=== PATIENT | male | born 1965 | race Caucasian/White ===

== ENCOUNTER 2018-02-17 08:04 | Day surgery (SDC) | payer OTHER ==
[~2018-02-17 08:04] MED LIST: Buffered Lidocaine 0.9% SYRIN* 5 ML/SYR SYRINGE INTRADERM ONE
[2018-02-17] MEDS ORDERED: ceFAZolin 2 GM in NS PREMIX(*) 2 GM/100 ML BAG IVPB ONE (08:29)
[2018-02-17] MEDS ORDERED: Rocuronium* 10 MG/ML VIAL ONE (09:11)
[2018-02-17] MEDS ORDERED: Midazolam* 1 MG/ML 2 ML VIAL (2 MG) ONE (09:11)
[2018-02-17] MEDS ORDERED: fentaNYL* 50 MCG/ML 2 ML VIAL (100 MCG VIAL) ONE ×2 (09:11→11:30)
[2018-02-17] MEDS ORDERED: Lidocaine 1%* 5 ML VIAL ONE (09:55)
[2018-02-17] MEDS ORDERED: ROPIVACAINE 5 MG/ML 30 ML BTL (0.5%) ONE (09:55)
[2018-02-17] MEDS ORDERED: Bupivacaine 0.25% SDV PF* 10 ML VIAL INJ ONE (10:12)
[2018-02-17] MEDS ORDERED: ceFAZolin 1 GM ADVAN(*) 1 GM ADDV.VIAL IVPB ONE (10:29)
[2018-02-17] MEDS ORDERED: HYDROcodone/ACETAMIN 5-325 MG* 1 TAB PO PRN (11:06)
[2018-02-17] MEDS ORDERED: DiMENhydriNATE IV* 50 MG/ML VIAL IV PUSH PRN (11:06)
[2018-02-17] MEDS ORDERED: Acetaminophen TAB* 325 MG PO PRN (11:06)
[2018-02-17] MEDS ORDERED: Ondansetron INJ* 2 MG/ML VIAL IV PRN (11:06)
[2018-02-17] MEDS ORDERED: Morphine INJ* 2 MG/ML 1 ML SYRINGE (TWO MG - NEW SYRINGE VERSION) IV PRN (11:06)
[2018-02-17] MEDS ORDERED: fentaNYL* 50 MCG/ML 2 ML VIAL (100 MCG VIAL) IV PRN (11:06)
[2018-02-17] MEDS ORDERED: Naloxone* 0.4 MG/ML 1 ML VIAL IV PRN (11:06)
[2018-02-17] MEDS ORDERED: Labetalol IV* 5 MG/ML 20 ML VIAL IV PUSH PRN (11:08)
[2018-02-17] MEDS ORDERED: hydrALAZINE IV* 20 MG/ML VIAL IV SLOW PU PRN (11:10)
[2018-02-17] MEDS ORDERED: Propofol* 10 MG/ML 20 ML BTL IV PUSH ONE (13:28)
[2018-02-17] MEDS ORDERED: Ondansetron INJ* 2 MG/ML VIAL ONE (13:28)
[2018-02-17] MEDS ORDERED: Dexamethasone IV* 4 MG/ML 1 ML (4 MG) ONE (13:28)
[2018-02-17] MEDS ORDERED: Metoclopramide IV* 5 MG/ML 2 ML VIAL ONE (13:28)
[2018-02-17 14:25] VITALS: BP 131/86
--- NOTE | 2018-02-22 13:50 | OP ---
CC: PCP, Jace Arcos MD * DATE OF OPERATION: 02/17/18 - [facility] DATE OF : 63 SURGEON: Miguel Angel Cerda MD RESEARCH ADVISOR: ANGELA Beltran. An pharmacy innovation assistant was needed for the entirety of the case to help with positioning, retraction, and was utilized throughout all portions of the case. ANESTHESIOLOGIST: Dr. Koo. ANESTHESIA: General with interscalene nerve block. PRE-OP DIAGNOSES: 1. Right shoulder calcific tendinitis. 2. Partial-thickness tear of the rotator cuff. POST-OP DIAGNOSES: 1. Right shoulder calcific tendinitis. 2. Partial-thickness tear of the rotator cuff. 3. Superior labrum anterior and posterior type 2 tear with biceps instability and synovitis. OPERATIVE PROCEDURE: 1. Right shoulder arthroscopy with extensive glenohumeral debridement including anterior and posterior labral debridement. 2. Subacromial decompression with acromioplasty. 3. Calcific tendon debridement. 4. Rotator cuff repair with Regeneten patch. 5. Subpectoral biceps tenodesis. COMPLICATIONS: None. ESTIMATED BLOOD LOSS: Minimal. IMPLANTS USED: One Q-FIX 2.8 mm and 1 medium-sized patch. INDICATIONS: Lucas Sparks is a 52-year-old male who had a work-related injury that has failed conservative treatment. Risks and benefits of surgery were discussed at length included but not limited to bleeding; infection; damage to nerves, vessels, surrounding structures; wound nonhealing; persistent pain; need for further surgery; scarring; stiffness; incomplete relief of symptoms; and risks of anesthesia. DESCRIPTION OF PROCEDURE: The patient was greeted in the preoperative area by the attending surgeon. Correct extremity was marked and the consent was confirmed. The patient underwent interscalene nerve block in the preoperative area. Then, the patient was brought back to the operating suite where he was placed in supine position on the operating table. He then underwent general anesthesia, after which he was placed in the left lateral decubitus position with all bony prominences padded. He was secured with a peg board. The right shoulder was prepped and draped in usual sterile fashion beginning with chlorhexidine soap, scrub, and alcohol wipe and a final prep with ChloraPrep. After appropriate surgical pause indicating site, side, procedure, and administration of antibiotics, the standard postero-lateral portal was made sharply with an 11-blade. Scope was introduced into the joint. The glenohumeral joint was examined. There were grade 1 and 2 changes to the glenohumeral joint. There was biceps synovitis and inflammation. There was biceps tendinitis as well. The superior labrum had a type 2 SLAP tear. The undersurface of the rotator cuff had partial-thickness tearing. The anterior portal was made in outside fashion. Shaver was used to debride back the anterior, posterior, superior labrum. Biceps was then tenotomized for later tenodesis. Subscap was intact. The under-surface of the rotator cuff supraspinatus had partial-thickness tearing, moderate grade. The inferior recess was intact. Once the intraarticular work was completed, attention was directed to subacromial space. With the scope positioned in subacromial space, the shaver was used to debride back the abundant bursitis that was present. The undersurface of the acromion was skeletonized using electrocautery device. The 4-0 oval bur was then used to remove the undersurface of the acromion. Acromial spur was just debrided back and all the excess debris was removed. Attention was then directed to the rotator cuff. It was gently probed with a blunt tip device. The calcific lesion was identified and then tenotomized with an 18-gauge spinal needle. As this was done, small flecks of calcium were carefully removed. The remainder was then removed with a blunt probe. Shaver was used to debride of anything remaining at this point. The cuff was then probed. There were some partial bursal-sided tearing. Incision was made to do a redundant patch for augmentation to allow the partial tears to heal. Medium- sized patch was then used as a rotator cuff repair augment. This was then secured using bone tendon cristina. Once this was completed, the final images were obtained. The wounds were copiously irrigated with sterile saline. Attention was directed to the biceps. The bed was air-planed to the right side. The anterior aspect of the shoulder was prepped again using ChloraPrep. A 15-blade was used to make an incision. The soft tissues were carefully dissected to expose the fascia. The remainder of the dissection was done bluntly. The biceps was brought through the wound. The groove was then prepared in the usual fashion with the electrocautery, the red ball rasp, and osteotome. The Q-FIX was drilled unicortically and deployed with excellent purchase. The sutures were then passed through the tendon approximately 1 cm proximal to the musculotendinous junction in a David-Reyes type configuration. The excess stump was excised. The biceps was shoveled back to the wound and secured. The wounds were copiously irrigated with sterile saline. The portals were closed with 3-0 nylon. The anterior wound was closed in layers of 2-0 Vicryl and 3-0 Monocryl. Sterile dressings were applied. A Cryo/Cuff and UltraSling were applied. He was awoken from anesthesia and transported to PACU in stable condition. POSTOPERATIVE PLAN: He will be nonweightbearing. He will be in the sling for 4 weeks. He will be discharged on pain medications and antibiotics. DVT prophylaxis was considered, but deferred due to no previous personal or family history. I will see the patient back in 10 to 14 days. He will start therapy over the next 2 weeks. [id number]/[facility] #: [id number] MTDD
== END 2018-02-17 14:39 | disposition home or self-care (01) ==
LOC: OR 08:04
PROVIDERS: ATTEND Orthopaedic Surgery
DX: S46.011A Strain of muscle(s) and tendon(s) of the rotator cuff of right shoulder, initial encounter (principal); M75.31 Calcific tendinitis of right shoulder; E78.5 Hyperlipidemia, unspecified; I10 Essential (primary) hypertension; E11.9 Type 2 diabetes mellitus without complications; Z79.84 Long term (current) use of oral hypoglycemic drugs; Z87.891 Personal history of nicotine dependence; E66.01 Morbid (severe) obesity due to excess calories; Z68.41 Body mass index [BMI] 40.0-44.9, adult; G89.18 Other acute postprocedural pain; X58.XXXA Exposure to other specified factors, initial encounter; Y92.9 Unspecified place or not applicable; Y99.0 Civilian activity done for income or pay
CPT/HCPCS: C1713; C1776; J0690; J1100; J2250; J2405; J2704; J2765; J2795; J3010; J3490

== ENCOUNTER 2019-04-26 16:09 | Emergency (ER) | payer OTHER ==
--- OUTSIDE RECORDS SUMMARY | 2019-04-26 16:16 | XMS REPORT | Continuity of Care Document ---
:1965 External Reference #:[id number] Author Name David Bell D.O. Address [address] [place] [id number] Care Team Providers Name Role Phone HCP given Care Team Information Tableau Analyst Unavailable Magen Hogan DO - Neurology Care Team Information Tableau Analyst [phone] Benito Cruz MD - Neurological Care Team Information Tableau Analyst Surgery Concussion Management Program - Care Team Information Tableau Analyst Family Medicine Problems Active Problems Provider Date Headache Chicho Larkin M.D. Onset: 05/17/2011 Postconcussion syndrome Chicho Larkin M.D. Onset: 05/17/2011 Impaired fasting glycaemia Chihco Larkin M.D. Onset: 06/21/2013 Type II diabetes mellitus uncontrolled Chicho Larkin M.D. Onset: 2014 Type 2 diabetes mellitus Chicho Larkin M.D. Onset: 10/16/2016 Social History Type Date Description Comments Sex Unknown Tobacco Use Start: Unknown End: Former Cigarette Smoker Quit 2006; prior to Unknown that smoked up to 2ppd. ETOH Use Rarely consumes alcohol Recreational Drug Use Denies Drug Use Tobacco Use Start: Unknown Non Smoker Smoking Status Reviewed: 04/04/19 Non Smoker Sun Exposure Does not use sunscreen Seat Belt/Car Seat always uses seat belt Allergies, Adverse Reactions, Alerts Description No Known Drug Allergies Medications Active Medications SIG Qnty Indications Ordering Date Provider Janumet XR 1 by mouth every 90tabs David Bell, 09/02/2018 100-1000mg day D.O. Tablets ER 24HR Ra Aspirin Ec take 1 tablet by 90tabs E11.9 Sopchak, David, 04/19/2018 81mg mouth daily for D.O. Tablets DR heart disease prevention Ventolin HFA 2 puffs q4-6 hours 18gm David Bell, 07/18/2017 as needed D.O. 108(90Base) mcg/Act Aerosol Atorvastatin Calcium 1 by mouth every 90tabs E11.9 David Bell, 2016 day D.O. 40mg Tablets Lisinopril take 1 tablet by 100tabs E11.628 David Bell, 01/06/2017 2.5mg mouth once daily D.O. Tablets for high blood pressure Glucometer test 1-2 times a 1units E11.9 Chicho A. 10/17/2016 day Nay Larkin Glucose Test Strips test once to twice 100units E11.9 Chicho A. 2016 / a day or as Nay Larkin directed - provide appropriate type for the glucometer and pt's insurance coverage Ibuprofen 1 cap by mouth 270tabs M25.562 David Bell, 01/30/2016 800mg three times a day D.O. Tablets as needed R51 Carisoprodol take 1 tablet by 90tabs M54.5 David Bell, 350mg Tablets mouth three times a D.O. day if needed for headache . max of 3 tabs/day F07.81 Immunizations CPT Code Status Date Vaccine Lot # [id number] Given 08/03/2014 Hep A, Adult [id number] Given 11/26/2013 Hep A, Adult [id number] Given 05/06/2010 Adacel or Boostrix, TDaP [id number] U-Flu Refused 05/21/2015 Influenza,Unspecified [id number] Refused 06/20/2013 Flu, Split Virus 3Yrs [id number] Refused 03/17/2011 Flu, Split Virus 3Yrs Vital Signs Date Vital Result Comment 04/04/2019 3:51pm BP Systolic 130 mmHg BP Diastolic 72 mmHg Height 72 inches 6'0" Weight 306.00 lb BMI (Body Mass Index) 41.5 kg/m2 12/02/2018 3:53pm BP Systolic 140 mmHg BP Diastolic 82 mmHg Weight 305.00 lb w/sneakers Results Test Acquired Date Facility Test Result H/L Range Note Comp Metabolic 04/06/2019 [facility] Sodium 139 mmol/L Normal 135- 145 Panel [phone] Potassium 4.7 mmol/L Normal 3.5-5.0 Chloride 105 mmol/L Normal 101-111 Co2 Carbon Dioxide 28 mmol/L Normal 22-32 Anion Gap 6 mmol/L Normal 2-11 Glucose 176 mg/dL High 70-100 Blood Urea Nitrogen 20 mg/dL Normal 6-24 Creatinine 0.97 mg/dL Normal 0.67-1.17 BUN/Creatinine Ratio 20.6 High 8-20 Calcium 9.1 mg/dL Normal 8.6-10.3 Total Protein 6.7 g/dL Normal 6.4-8.9 Albumin 4.1 g/dL Normal 3.2-5.2 Globulin 2.6 g/dL Normal 2-4 Albumin/Globulin Ratio 1.6 Normal 1-3 Total Bilirubin 0.80 mg/dL Normal 0.2-1.0 Alkaline Phosphatase 102 U/L Normal 34-104 Alt 21 U/L Normal 7-52 Ast 18 U/L Normal 13-39 Egfr Non- 80.7 >60 Egfr 97.6 >60 1 CBC Auto Diff 04/06/2019 [facility] White Blood 5.7 10^3/uL Normal 3.5-10.8 [phone] Count Red Blood Count 6.34 10^6/uL High 4.18-5.48 Hemoglobin 13.3 g/dL Low 14.0-18.0 Hematocrit 42 % Normal 42-52 Mean Corpuscular Volume 66 fL Low 80-94 Mean Corpuscular Hemoglobin 21 pg Low 27-31 Mean Corpuscular HGB Conc 32 g/dL Normal 31-36 Red Cell Distribution Width 16 % High 10-15 Platelet Count 162 10^3/uL Normal 150-450 Mean Platelet Volume 9.1 fL Normal 7.4-10.4 Abs Neutrophils 4.1 10^3/uL Normal 1.5-7.7 Abs Lymphocytes 1.1 10^3/uL Normal 1.0-4.8 Abs Monocytes 0.4 10^3/uL Normal 0-0.8 Abs Eosinophils 0.1 10^3/uL Normal 0-0.6 Abs Basophils 0.0 10^3/uL Normal 0-0.2 Abs Nucleated RBC 0.0 10^3/uL Granulocyte % 71.2 % Lymphocyte % 19.0 % Monocyte % 7.1 % Eosinophil % 2.3 % Basophil % 0.4 % Nucleated Red Blood Cells % 0.4 Laboratory test 04/06/2019 [facility] TSH (Thyroid 1.58 Normal 0.34- 5.60 2 finding [phone] Stim Horm) mcIU/mL Testosterone 04/06/2019 [facility] Free 8.55 ng/dL 4.06-15.6 3 Free & Total [phone] Testosterone ng/dl Testosterone 342 ng/dL 240-950 4 Laboratory test 04/06/2019 [facility] Vitamin B12 509 pg/mL Normal 180-914 5 finding [phone] Folic Acid (Folate) 10.63 ng/mL >3.99 6 Magnesium 2.0 mg/dL Normal 1.9-2.7 7 Laboratory test finding 04/04/2019 In House Hemoglobin A1c 6.4 Laboratory test finding 12/02/2018 In House Hemoglobin A1c 6.3 1 Because ethnic data is not always readily available, this report includes an eGFR for both -Americans and non- Americans. The National Kidney Disease Education Program (NKDEP) does not endorse the use of the MDRD equation for patients that are not between the ages of 18 and 70, are , have extremes of body size, muscle mass, or nutritional status, or are non- or non-. According to the National Kidney Foundation, irrespective of diagnosis, the stage of the disease is based on the level of kidney function: Stage Description GFR(mL/min/1.73 m(2)) 1 Kidney damage with normal or decreased GFR 90 2 Kidney damage with mild decrease in GFR 60-89 3 Moderate decrease in GFR 30-59 4 Severe decrease in GFR 15-29 5 Kidney failure <15 (or dialysis) 2 please do this first thing in the morning. 3 ADDITIONAL INFORMATION Testing performed by [facility]. This test was developed and its performance characteristics determined by [facility] in a manner consistent with CLIA requirements. This test has not been cleared or approved by the U.S. Food and Drug Administration. 4 ADDITIONAL INFORMATION Testing performed by Liquid Chromatography-Tandem Mass Spectrometry (LC-MS/MS). This test was developed and its performance characteristics determined by [facility] in a manner consistent with CLIA requirements. This test has not been cleared or approved by the U.S. Food and Drug Administration. Test Performed by: [facility] [address] [place] [address] Machine Oiler: Chicho Amezquita M.D. Ph.D.; CLIA# [id number] 5 Normal Range 180 to 914 Indeterminate Range 145 to 180 Deficient Range <145 6 please do this first thing in the morning. 7 please do this first thing in the morning. Procedures Date Code Description Status 04/04/2019 571027252 Diabetic Foot Exam Completed 09/06/2018 [id number] Diabetic Retinal Eye Exam Completed 12/02/2016 [id number] Colonoscopy Completed Medical Devices Description No Information Available Encounters Type Date Location Provider Dx Diagnosis Office Visit 04/04/2019 Main Office David Bell, Z68.41 Body mass index 3:45p D.O. (BMI) 40.0-44.9, adult E11.9 Type 2 diabetes mellitus without complications R53.83 Other fatigue F07.81 Postconcussional syndrome Z79.4 FDC (current) use of insulin G44.321 Chronic post-traumatic headache, intractable Office Visit 12/02/2018 3:45p Main Office aDvid Bell, E11.9 Type 2 diabetes D.O. mellitus without complications Assessments Date Code Description Provider 04/04/2019 Z68.41 Body mass index (BMI) 40.0-44.9, adult David Bell D.O. 04/04/2019 E11.9 Type 2 diabetes mellitus without David Bell D.O. complications 04/04/2019 R53.83 Other fatigue David Bell D.O. 04/04/2019 F07.81 Postconcussional syndrome David Bell D.O. 04/04/2019 Z79.4 terminal supervisor (current) use of insulin David Bell D.O. 04/04/2019 G44.321 Chronic post-traumatic headache, intractable David Bell D.O. 12/02/2018 E11.9 Type 2 diabetes mellitus without David Bell D.O. complications Plan of Treatment Future Appointment(s):08/11/2019 8:30 am - David Bell D.O. at Main [id number]/04/2019 - David Bell D.O.Z68.41 Body mass index (BMI) 40.0-44.9, wbzofI75.9 Type 2 diabetes mellitus without complicationsFollow up:4 mo recheck DM w/ A1c Today's A1c was 6.4R53.83 Other fyduxvjT78.81 Postconcussional vezrgvzsU44.4 terminal supervisor (current) use of lqzbqzqM94.321 Chronic post-traumatic headache, intractable Functional Status Description No Information Available Mental Status Description No Information Available Referrals Description No Information Available
[2019-04-26 16:25] VITALS: BP 142/89
--- NOTE | 2019-04-26 17:12 | UC ---
Abdominal Pain Male HPI - HPI Summary HPI Summary: 53-year-old male comes in with a chief complaint of right-sided groin pain. Started yesterday. Most assignments minimal about a 1 out of 10. It does get slightly worse when he bends over and stretches or if he palpates the area. Denies any burning with urination. Has been eating and drinking normally. No change in bowels. No fevers or chills. Signified area it's tender but he has not noted any masses. No prior history of hernias. - History of Current Complaint Chief Complaint: UCGeneralIllness Stated Complaint: RT SIDE GROIN PAIN Time Seen by Provider: 04/26/19 16:27 Pain Intensity: 1 - Allergies/Home Medications Allergies/Adverse Reactions: Allergies Allergy/AdvReac Type Severity Reaction Status Date / Time No Known Allergies Allergy Verified 04/26/19 16:20 Home Medications: Home Medications Aspirin EC TAB* [Ecotrin EC Low Dose 81 MG*] 81 mg PO DAILY 04/26/19 [History Confirmed 04/26/19] Lisinopril TAB* [Prinivil TAB*] 2.5 mg PO BEDTIME 04/26/19 [History Confirmed ] Sitaglip/JhsarabOV155/1000(NR) [Janumet XR 100/1000 (NF)] 1 tab PO DAILY [History Confirmed 04/26/19] PMH/Surg Hx/FS Hx/Imm Hx Previously Healthy: Yes Endocrine History: Diabetes, Dyslipidemia Cardiovascular History: Hypertension - Surgical History Surgical History: Yes Surgery Procedure, Year, and Place: RIGHT KNEE, 1998 [facility]. LEFT ELBOW, [facility] [place], 2008. 1985, FACIAL LACERATION, [facility] - Family History Known Family History: Positive: Non-Contributory - Social History Alcohol Use: Weekly Alcohol Amount: few beers a week Substance Use Type: None Smoking Status (MU): Former Smoker Type: Cigarettes Amount Used/How Often: 1.5 PACKS A DAY Length of Time of Smoking/Using Tobacco: 1 1/2 PPD x 17 Years Have You Smoked in the Last Year: No When Did the Patient Quit Smoking/Using Tobacco: 2003 - Immunization History Most Recent Influenza Vaccination: no Review of Systems All Other Systems Reviewed And Are Negative: Yes Constitutional: Positive: Negative Skin: Positive: Negative Eyes: Positive: Negative ENT: Positive: Negative Respiratory: Positive: Negative Cardiovascular: Positive: Negative Gastrointestinal: Positive: Other - SEE HPI Genitourinary: Positive: Other - SEE HPI Motor: Positive: Negative Neurovascular: Positive: Negative Musculoskeletal: Positive: Negative Neurological: Positive: Negative Psychological: Positive: Negative Is Patient Immunocompromised?: No Physical Exam Triage Information Reviewed: Yes Appearance: Well-Appearing, No Pain Distress, Well-Nourished Vital Signs: Initial Vital Signs Temp 98 F 04/26/19 16:16 Pulse 78 04/26/19 16:16 Resp 15 04/26/19 16:16 BP 142/89 04/26/19 16:16 Pulse Ox 100 04/26/19 16:16 Vital Signs Reviewed: Yes Eye Exam: Normal Eyes: Positive: Conjunctiva Clear Neck: Positive: Supple Respiratory: Positive: No respiratory distress Abdomen Description: Positive: Nontender, Soft Bowel Sounds: Positive: Present Male Genital Exam: Positive: Other - Testicles are nontender to palpation and normal in contour. There is some tenderness in the right inguinal area just proximal to the scrotum. I do not appreciate any masses. A left inguinal area is normal and nontender to palpation. Abd Pain Male Course/Dx - Course Course Of Treatment: At this time we do not have ultrasound here in clinic. There is no evidence of a strangulated hernia or testicular torsion on exam. To have an ultrasound patient can either come back here tomorrow morning when we have ultrasound or go to the [facility] which has ultrasound in the evening or go to the emergency department. Patient is to go the emergency department he gets worse or any questions or concerns. - Differential Dx/Clinical Impression Provider Diagnosis: Right groin pain Discharge ED - Sign-Out/Discharge Documenting (check all that apply): Patient Departure All imaging exams completed and their final reports reviewed: No Studies - Discharge Plan Condition: Stable Disposition: HOME Patient Education Materials: Groin Pain (ED) Referrals: Jace Arcos MD [Primary Care Provider] - Additional Instructions: FOLLOW UP WITH YOUR DOCTOR IF NOT COMPLETELY IMPROVED. GET REEVALUATED SOONER IF NOT IMPROVING OR WORSE OR ANY QUESTIONS OR CONCERNS. - Billing Disposition and Condition Condition: STABLE Disposition: Home
== END 2019-04-26 17:17 | disposition home or self-care (01) ==
LOC: UCCORT 16:09
DX: R10.31 Right lower quadrant pain (principal); E11.9 Type 2 diabetes mellitus without complications; I10 Essential (primary) hypertension; Z79.82 Long term (current) use of aspirin; Z79.899 Other long term (current) drug therapy; Z79.84 Long term (current) use of oral hypoglycemic drugs; Z87.891 Personal history of nicotine dependence
CPT/HCPCS: 99211; G0463